=== PATIENT | male | born 1945 | race Caucasian/White ===

== ENCOUNTER 2024-11-19 10:55 | Outpatient (AMB) | payer BC, SELFPAY ==
--- OUTSIDE RECORDS SUMMARY | 2024-11-19 12:27 | XMS_ITS | Clinical Summary ---
Author Organization [facility] Address [address] [place] [address] Phone Care Team Providers Care Warp Spinner Name Role Phone Farhan Lala MD Primary Care Provider [phone] Allergies Active Allergy Reactions Criticality Noted Date Comments Corticosteroids (Glucocorticoids) Other Medications atorvastatin (LIPITOR) 40 mg tablet Take by mouth. Active LANSOPRAZOLE ORAL Take by mouth. Active propranoloL (INDERAL) 40 mg tablet Take 1.5 tablets (60 mg total) by mouth. Active lisinopril-hydro CHLOROthiazide (PRINZIDE,ZESTOR ETIC) 10-12.5 mg per tablet Take 1 tablet by mouth. 04/16/2019 Active metFORMIN (GLUCOPHAGE) 500 mg tablet 1 tablet (500 mg total). 12/09/2020 Active fluticasone propionate (ArmonAir Digihaler) 55 mcg/actuation aero powdr breath act w/sensor Inhale by mouth. 06/08/2018 Active fexofenadine (RACHID) 180 mg tablet Take 1 tablet (180 mg total) by mouth. 12/28/2015 Active polyethylene glycol 3350 (MIRALAX ORAL) Take 17 g by mouth. 04/16/2019 Active lansoprazole (PREVACID) [address] Lou ns:Gastroesophag eal reflux disease without esophagitis TAKE 1 CAPSULE ONCE DAILY 90 capsule 1 06/03/2024 Active Surgical History Surgery Date Site/Laterality Comments HIATAL HERNIA REPAIR COLOSTOMY COLOSTOMY CLOSURE CHOLECYSTECTOMY REPLACEMENT TOTAL KNEE ONCOLOGIC Bilatera l MULTIPLE TOOTH EXTRACTIONS CIRCUMCISION, PRIMARY ROTATOR CUFF REPAIR Bilateral AAA REPAIR HAND SURGERY Right APPENDECTOMY Medical History Medical History Date Comments Hyperlipidemia Hypertension Diabetes mellitus (CMS/[facility] V24, [facility] V28) Social History Tobacco Use Types Packs/Day Years Used Date Smoking Tobacco: Never Smokeless Tobacco: Never Tobacco Cessation:Counseling Given: Not Answered Alcohol Use Standard Drinks/Week Comments Never 0 (1 standard drink = 0.6 oz pur e alcohol) Interpersonal Safety Answer Date Record ed Physical Abuse 02/20/2024 Verbal Abuse 02/20/2024 Sex and Gender Information Value Date Recorded Sex Assigned at Not on file Legal Sex Male 10:58 PM EST Gender Identity Not on file Sexual Orientation Not on file Obstetrics History Last Filed Vital Signs Vital Sign Reading Time Taken Comments Blood Pressure 110/63 02/20/2024 11:17 AM EST Pulse 74 02/20/2024 11:17 AM EST Temperature 36.5 C (97.7 F) 02/20/2024 10:57 AM EST Respiratory Rate 16 02/20/2024 11:17 AM EST Oxygen Saturation 96% 02/20/2024 11:17 AM EST Inhaled Oxygen Concentration - - Weight 118 kg (260 lb) 02/20/2024 10:16 AM EST Height 182.9 cm (6') 02/20/2024 10:16 AM EST Body Mass Index 35.26 02/20/2024 10:16 AM EST Plan of Treatment Health Maintenance Due Date Last Done Comments Diabetes: Annual GFR (Glomerular Filtration Rate) 1945 Diabetes: Annual Foot Exam 1954 Diabetes: Annual Retina Eye Exam 1954 DTaP,Tdap,and Td Vaccines (1 - Tdap) 09/17/1963 Pneumococcal Vaccine: 50+ Years (1 of 1 - PCV) 1994 RSV Immunization Adult Patients (1 - 1-dose 75+ series) 09/17/2019 Cholesterol Screening (Lipid Panel) 03/06/2022 Medicare Annual Wellness Visit 03/06/2022 Social Influencers of Health Screening 03/06/2022 COVID-19 Vaccine ( season) 2023 11/06/2021, 11/12/2020, 10/22/2020 Diabetes: Annual Urine Albumin-Creatinine Ratio (uACR) 02/20/2024 Diabetes: Blood Sugar Control Test (HGBA1C) 02/20/2024 Hypertension/CHF/CAD Annual BMP Blood Test 02/20/2024 Depression Screening 04/03/2024 Influenza Vaccine (#1) 2024 3, 02/01/2022, 01/09/2020, Additional history exists Falls Risk Assessment 02/19/2025 02/20/2024 Zoster Vaccines Completed 04/16/2020, 01/09/2020 HIB Vaccines Aged Out No longer eligi ble based on patient's age to complete this topic HPV Vaccines Aged Out No longer eligi ble based on patient's age to complete this topic Hepatitis A Vaccines Aged Out No long er eligible based on patient's age to complete this topic Hepatitis B Vaccines Aged Out No long er eligible based on patient's age to complete this topic IPV Vaccines Aged Out No longer eligi ble based on patient's age to complete this topic MMR Vaccines Aged Out No longer eligi ble based on patient's age to complete this topic Meningococcal ACWY Vaccine Aged Out N o longer eligible based on patient's age to complete this topic Meningococcal B Vaccine Aged Out No l onger eligible based on patient's age to complete this topic RSV Immunization Patients Under 20 months Aged Out No longer eligible based on patient's age to complete this topic Varicella Vaccines Aged Out No longer eligible based on patient's age to complete this topic Insurance [employer]UE [employer] - [place] MEDICARE ADVANTAGE Advance Directives Documents on File Type Date Recorded Patient Mail Distributor Expl anation Health Care Decision (hx) 07/09/2015 AD FERRER DIRECTIVE Health Care Decision (hx) 07/09/2015 AD FERRER DIRECTIVE Health Care Decision (hx) 07/09/2015 AD FERRER DIRECTIVE Health Care Decision (hx) 07/09/2015 AD FERRER DIRECTIVE Health Care Decision (hx) 07/09/2015 AD FERRER DIRECTIVE Health Care Decision (hx) 07/09/2015 AD FERRER DIRECTIVE Health Care Decision (hx) 07/09/2015 AD FERRER DIRECTIVE Health Care Decision (hx) 07/09/2015 AD FERRER DIRECTIVE Health Care Decision (hx) 07/09/2015 AD FERRER DIRECTIVE Health Care Decision (hx) 07/09/2015 AD FERRER DIRECTIVE Health Care Decision (hx) 07/09/2015 AD FERRER DIRECTIVE Health Care Decision (hx) 07/09/2015 AD FERRER DIRECTIVE Health Care Decision (hx) 07/09/2015 AD FERRER DIRECTIVE Health Care Decision (hx) 01/20/2015 AD FERRER DIRECTIVE Health Care Decision (hx) 01/20/2015 AD FERRER DIRECTIVE Health Care Decision (hx) 01/20/2015 AD FERRER DIRECTIVE Health Care Decision (hx) 01/20/2015 AD FERRER DIRECTIVE Health Care Decision (hx) 01/20/2015 AD FERRER DIRECTIVE Health Care Decision (hx) 01/20/2015 AD FERRER DIRECTIVE Health Care Decision (hx) 01/20/2015 AD FERRER DIRECTIVE Health Care Decision (hx) 01/20/2015 AD FERRER DIRECTIVE Health Care Decision (hx) 01/20/2015 AD FERRER DIRECTIVE Health Care Decision (hx) 01/20/2015 AD FERRER DIRECTIVE Health Care Decision (hx) 01/20/2015 AD FERRER DIRECTIVE Health Care Decision (hx) 01/20/2015 AD FERRER DIRECTIVE Health Care Decision (hx) 01/20/2015 AD FERRER DIRECTIVE Care Teams Warp Spinner Relationship Specialty Start Date End Date Farhan Lala MD PCP - General 01/30/23
--- OUTSIDE RECORDS SUMMARY | 2024-11-19 12:27 | XMS_ITS | Patient Health Record ---
Author Organization [facility] Address [address] [place] [address] Care Team Providers Care Tape Recorder Mechanic Name Role Phone Dai UP, Farhan Primary Care Provider Unavailab ian Hoffmann Ashley Unavailable [phone] Allergies Allergen (clinical drug ingredient) Drug/Non Drug Allergy documented on EMR Reaction Allergy Type Onset Date Status injectable steriods eye pressure, get checked. Drug Allergy Active Results Component Value Reference Range Notes HEMOGLOBIN A1C (GLYCOHEMOGLO BIN) Reviewed date:06/06/2024 10:57:42 AM Interpretation: Performing Lab: Notes/Report: HEMOGLOBIN A1C % (HH) 6.2 HEMOGLOBIN A1C (GLYCOHEMOGLO BIN) Reviewed date:04/14/2024 06:54:23 PM Interpretation: Performing Lab: Notes/Report: HEMOGLOBIN A1C % (HH) 6.2 Reason For Referral No Information Medications Medication SIG (Take, Route, Frequency, Duration) Notes Start Date End Date Status Extra Depth Orthopedic Shoes (1 Pair) with Customized Heat Molded Multidensity Innersoles (3 Pair) as directed Dx: NIDDM (E11.9), Hammertoe Foot Deformity (M20.41,M20.42), Preulcerative Skin Lesion(s) (L85.1) 06/21/2021 Active hydroCHLOROthiazide 25 MG 1 tablet in the morning Orally Once a day; Duration: 30 day(s) Active Ketoconazole 2 % 1 application Externally Once a day; Duration: 30 days 12/23/2021 Active Ammonium Lactate 12 % 1 application Externally to affected areas of dry skin to feet except for between the toes Twice a day; Duration: 30 days Active Fexofenadine HCl 180 MG as directed Orally Active Docusate Sodium Not- Taking Lansoprazole 30 MG 1 capsule Orally Once a day Active Ciclopirox Olamine 0.77 % 1 application to affected area Externally Twice a day; Duration: 30 days Not-Taking Lisinopril 20 MG 1 tablet Orally Once a day; Duration: 30 day(s) Active Propranolol HCl 60 MG Orally Once a day Active metFORMIN HCl 500 MG 1 tablet with a meal Orally Once a day; Duration: 30 day(s) Active Fluticasone Propionate 50 MCG/ACT 1 spray in each nostril Nasally Once a day; Duration: 30 day(s) Not-Taking Thick-It necter thickness Active Clotrimazole-Betamethaso ne 1-0.05 % 1 application Externally Twice a day for 2 weeks then off for 2 weeks -repeat; Duration: 30 days Active Atorvastatin Calcium 40 MG 1 tablet Orally Once a day Active Ciclopirox Olamine 0.77 % 1 application Externally Twice a day; Duration: 30 days Not-Taking MiraLax Active Azelastine HCl Not-T aking Immunizations Vaccine Route Administration Date Status Comme nts Influenza Unknown 01/20/2023 Administered COVID-19 Pfizer BioNTech Vaccine Unknown 11/12/2020 Administered 1st 10/22/2020 2nd 11/12/2020 Social History Tobacco Use: Social History Observation Description Date Details (start date - stop date) Never Smoker NA - NA Tobacco use other than smoking: Question Answer Notes Are you an other tobacco user? No Tobacco Control (Standard) Question Answer Notes Tobacco use: Nonsmoker Additional Findings: Tobacco non-user Current no nsmoker AUDIT-C (Standard) Question Answer Notes Did you have a drink containing alcohol in the p ast year? No Points 0 Interpretation Negative Problems Problem Type SNOMED Code ICD Code Onset Dates Problem Status W/U Status Risk Notes Problem Information temporarily unavailable Other hammer toe(s) (acquired), right foot (M20.41) Active confirmed Problem Information temporarily unavailable Other hammer toe(s) (acquired), left foot (M20.42) Active confirmed Problem Information temporarily unavailable Other hammer toe(s) (acquired), right foot (M20.41) Active confirmed Problem Information temporarily unavailable Type 2 diabetes mellitus with diabetic polyneuropathy (E11.42) Active confirmed Problem Information temporarily unavailable Hammer toe of right foot (M20.41) Active confirmed Problem Information temporarily unavailable Skin ulcer of toe of right foot, limited to breakdown of skin (L97.511) Active confirmed Response to treatment Problem Information temporarily unavailable Skin ulcer of toe of left foot, limited to breakdown of skin (L97.521) Active confirmed Response to treatment,, Nonapplicab le Vital Signs Heart Rate 66 /min 06/06/2024 Blood pressure diastolic 90 mm Hg 06/06/2024 Height 6 ft in 06/06/2024 Blood pressure systolic 144 mm Hg 06/06/2024 Weight 260 lbs 06/06/2024 BMI 35.26 kg/m2 06/06/2024 Procedures Procedure Date Ordered Date Performed Result Body Sit e 66299-URZTULU NAIL, 6 OR MORE 12/07/2023 N/A 22923- Debride <25 sq cm 12/07/2023 N/A 50146-WEYA SKIN LESIONS, OVER 4 12/07/2023 N/A 51802-BWSVRDM NAIL, 6 OR MORE 06/06/2024 N/A 67872-HNCL SKIN LESIONS, OVER 4 06/06/2024 N/A Encounters Encounter Location Date Provider Diagnosis [address] [address] 12/07/2023 Ashley Hoffmann Type 2 diabetes mellitus with diabetic polyneuropathy E11.42 ; Tinea unguium B35.1 and Skin ulcer of toe of left foot, limited to breakdown of skin L97.[address] [address] 06/06/2024 Ashley Hoffmann Type 2 diabetes mellitus with diabetic polyneuropathy E11.42 ; Xerosis of skin L85.3 ; Tinea unguium B35.1 ; Other hammer toe(s) (acquired), right foot M20.41 and Other hammer toe(s) (acquired), left foot M20.[address] [address] 12/06/2023 Ashley Hoffmann Assessments Encounter Date Diagnosis (ICD Code) Assessment Notes Treatment Notes Treatment Clinical Notes Section Notes 12/07/2023 Tinea unguium (ICD-10 - B35.1) 12/07/2023 Type 2 diabetes mellitus with diabetic polyneuropathy (ICD-10 - E11.42) 06/06/2024 Type 2 diabetes mellitus with diabetic polyneuropathy (ICD-10 - E11.42) 06/06/2024 Xerosis of skin (ICD-10 - L85.3) 06/06/2024 Tinea unguium (ICD-10 - B35.1) 12/07/2023 Skin ulcer of toe of left foot, limited to breakdown of skin (ICD-10 - L97.521) Response to treatment,,Bette pplicable Patient Educated with: WOUND CARE INSTRUCTIONS. pdf (WOUND CARE INSTRUCTIONS. pdf) 06/06/2024 Other hammer toe(s) (acquired), right foot (ICD-10 - M20.41) Patient Educated with: DIABETIC FOOT CARE INSTRUCTIONS. pdf (DIABETIC FOOT CARE INSTRUCTIONS. pdf) 06/06/2024 Other hammer toe(s) (acquired), left foot (ICD-10 - M20.42) 12/07/2023 Other 06/06/2024 Other Plan Of Treatment Pending Test Test Name Order Date X ray : Foot, right 2V 06/21/2021 65133-UEQOWEY NAIL, 6 OR MORE 10/18/2021 43772-YVDLKCT NAIL, 6 OR MORE 10/11/2018 78663-IBVRMGD NAIL, 6 OR MORE 06/21/2021 67431-YGDPCAK NAIL, 6 OR MORE 08/07/2017 91747-QZCKTCC NAIL, 6 OR MORE 12/21/2017 84281-YNINQWC NAIL, 6 OR MORE 04/26/2018 43830-DMNHECD NAIL, 6 OR MORE 03/21/2019 30116-PXNYIIV NAIL, 6 OR MORE 09/19/2019 96240-XOATTGB NAIL, 6 OR MORE 03/19/2020 89590-OEDJHFF NAIL, 6 OR MORE 09/21/2020 29610-CORZAWI NAIL, 6 OR MORE 12/23/2021 73939-GGHZXOT NAIL, 6 OR MORE 06/23/2022 61111-LHDYZBO NAIL, 6 OR MORE 12/29/2022 97692-IAKJIZW NAIL, 6 OR MORE 06/29/2023 93184-IILOKSX NAIL, 6 OR MORE 12/07/2023 83654-NZXWREO NAIL, 6 OR MORE 06/06/2024 80862-Mkqewuzv Plate 10/18/2021 57334-Cvcwnsdz Plate 06/29/2023 47754-Alspwnfe Plate 12/29/2022 83399-Zxfptllu Plate 06/21/2021 96879-Xpvdioih Plate 03/21/2019 49270-Iyguhktc Plate Each Additional 58840- Debride <25 sq cm 12/07/2023 27469- Debride <25 sq cm 03/21/2019 09258- Debride <25 sq cm 04/26/2018 10421-WFXF SKIN LESIONS, OVER 4 12/24/19 87316-EVEY SKIN LESIONS, OVER 4 10/19/19 58904-VDRO SKIN LESIONS, OVER 4 12/07/19 65864-YJTZ SKIN LESIONS, OVER 4 06/07/19 60941-VVJV SKIN LESIONS, OVER 4 06/29/19 16552-BDJW SKIN LESIONS, OVER 4 12/30/19 77101-IEGN SKIN LESIONS, OVER 4 06/24/19 Next Appt Details Provider Name:Ashley Hoffmann , 12/12/2024 11:00:00 AM, [address] [place], [address], Insurance Providers Payer Name Payer Address Payer Phone Subscriber Number Group Number Insured Name Patient Relationship to Insured Coverage Start Date Coverage End Date [facility] 65 Medicare Preferred [address] [place] [address] [id number] Yossi Cabrera Self - patient is the insured Medical (General) History Medical History History ICD Code Reflux ( GERD) Cataracts Diverticulosis Gall bladder problems Headaches Migraines Hiatal hernia High blood pressure Numbness Neuropathy chronic sinusitis TIA Thyroid disorder Measles Transfusions Dysphagia covid-19 Diabetic Surgical History Surgery Date(Month/Year) cyst removal 04/24/17 colostomy x2 2015 - x3 2016 total left knee replacement 01/06/15 total right knee replacement 09/30/2014 knee surgery, left torn cartilage 05/09/02 & 10/22/08 circumcision 10/22/07 rotator cuff tear repair L shoulder 07/01 aneurysm repair 12/31/03 deviated septum repair & sinus cavity carpal tunnel surgery R wrist 03/12/01 umbilical hernia repair & remove 3 parat hyroid glands 09/09/92 appendectomy 1958 wrist surgery broken 1957 rotator cuff tear repair R shoulder Dental implant 04/14/08 Upper Denture 08/26/09 Hospitalization History Reason Date(Month/Year) [facility]- Fall 06/02/22 Viral Infection 07/22
--- OUTSIDE RECORDS SUMMARY | 2024-11-19 12:27 | XMS_ITS | Encounter Summary ---
Author Organization [facility] Address [address] [place] [address] Phone Care Team Providers Care Dobby Loom Chain Pegger Name Role Phone Farhan Lala MD Primary Care Provider [phone] Encounter Details Date Type Department Care Team (Late st Contact Info) Description 09/11/2020 Orders Only [facility] [address] [place] [address] Any Fernando MD Hyperkalemia; Renal artery stenosis (HCC); Hypertensive disorder Social History Tobacco Use Types Packs/Day Years Used Date Smoking Tobacco: Never Alcohol Use Standard Drinks/Week Comments No 0 (1 standard drink = 0.6 oz pur e alcohol) Sex and Gender Information Value Date Recorded Sex Assigned at Not on file Legal Sex Male 4:55 PM EST Gender Identity Not on file Sexual Orientation Not on file documented as of this encounter Plan of Treatment Not on file documented as of this encounter Procedures Procedure Name Priority Date/Time Associated Diagnosis Comments RENAL FUNCTION PANEL Routine 12/22/2020 12:20 PM EDT Hyperkalemia Renal artery stenosis (HCC) Hypertensive disorder documented in this encounter Results * (ABNORMAL) Renal function panel (12/22/2020 12:20 PM EDT) Glucose 115(H) (70-99) MG/DL [facility] BUN 11 (8-23) MG/DL [facility] Creatinine 1.0 (0.7-1.2) MG/DL [facility] Sodium 141 (133-145) MMOL/L [facility] Potassium 4.9 (3.6-5.2) MMOL/L [facility] Chloride 101 (98-107) MMOL/L [facility] Bicarbonate (CO2) 28 (22-29) MMOL/L [facility] Anion Gap 12 (4-17) [facility] Albumin 4.2 (3.4-4.8) GM/DL [facility] Calcium 9.4 (8.6-10.5) MG/DL [facility] Phosphorus, Serum 3.8 (2.5-4.5) MG/DL [facility] Est GFR Non 69 ML/MIN/1.7 3 M2 [facility] Comment: Creatinine based estimated glomerular filtration rate (eGFR) is calculated using the Chronic Kidney Disease Epidemiology Collaboration (CKD-EPI). The CKD-EPI creatinine equation has not been validated in children (<18 years), women or in some racial or ethnic subgroups other than Caucasians and Americans. EST GFR 80 ML/MIN/1.7 3 M2 [facility] Comment: Creatinine based estimated glomerular filtration rate (eGFR) is calculated using the Chronic Kidney Disease Epidemiology Collaboration (CKD-EPI). The CKD-EPI creatinine equation has not been validated in children (<18 years), women or in some racial or ethnic subgroups other than Caucasians and Americans. Testing performed or reported by [facility], a Service of [facility], [address] [place] [address] Sundeep Hugo MD, Roll Press Operator [facility]# [id number] Blood specimen (specimen) Venous blood / Unknown 12/22/2020 12:20 PM EDT 12/22/2020 1:15 PM EDT us Any Fernando MD LAB BLOOD ORDERABLES Final Resu lt [facility] documented in this encounter Visit Diagnoses Diagnosis Hyperkalemia Renal artery stenosis (HCC) Hypertensive disorder documented in this encounter Care Teams Dobby Loom Chain Pegger Relationship Specialty Start Date End Date Farhan Lala MD [address] [place] [address] PCP - General Internal Medicine 12/25/20 documented as of this encounter
--- OUTSIDE RECORDS SUMMARY | 2024-11-19 12:27 | XMS_ITS | Continuity of Care Document ---
Author Organization [facility] [address] [facility] [address] [place] [address] Phone [phone] Care Team Providers Care Plant Specialist Name Role Phone Farhan Murillo M.D. Care Team Information Receive r [phone] Problems Active Problems Provider Date Gastroesophageal reflux disease Yazan Rao M.D. Onset: 09/21/2022 Muhammad's esophagus Yazan Rao M.D. Onset: 09/21/2022 Allergic rhinitis Yazan Rao M.D. Onset: 0 09/21/2022 Hypercholesterolemia Yazan Rao M.D. Onset : 09/21/2022 Essential hypertension Yazan Rao M.D. Ons et: 09/21/2022 Periodontal disease Yazan Rao M.D. Onset: 09/21/2022 Hypothyroidism Yazan Roa M.D. Onset: Hypoparathyroidism Yazan Rao M.D. Onset: 09/21/2022 Hypercalcemia Yazan Rao M.D. Onset: Seasonal allergy Yazan Rao M.D. Onset: Gallstone Yazan Rao M.D. Onset: Diastasis recti Yazan Rao M.D. Onset: Prostate mass Yazan Rao M.D. Onset: History of primary hyperparathyroidism Yazan bazan M.D. Onset: 09/21/2022 Type 2 diabetes mellitus Yazan Rao M.D. O nset: 09/21/2022 Multinodular goiter Yazan Rao M.D. Onset: 09/21/2022 Osteoarthritis Yazan Rao M.D. Onset: Social History Type Date Description Comments Sex Male Sex Unknown Lives With Spouse Lives With Daughter Lives With Grandson ETOH Use Denies alcohol use Tobacco Use Start: Unknown Patient has never smoked Allergies and adverse reactions Description No Known Drug Allergies Medications Active Medications SIG Qnty Indications Ordering Provider Date Propranolol HCL ER60mg Caps ER 24HR Take 1 capsule daily Estela Romo MD Atorvastatin Etszjwe77mq Tablets Take 1 tablet daily Farhan Murilol M.D. Metformin SUM437cp Tablets Take 1 Tablet By Mouth Every Day Am Farhan Murillo M.D. Lisinopril-Hydrochlorot uoffiqf75-99wq Tablets Take 1 tablet daily Unknown Dhzeedpoyvya70xr Capsules DR Take One Capsule By Mouth Every Day Jeimy [place] CNP Triamcinolone Acetonide0.1% Cream Apply Onto The Skin as Directed Three Times A Day Unknown Vital Signs Date Vital Result Comment 06/18/2024 10:18am BP Systolic 160 mmHg BP Diastolic 80 mmHg Heart Rate 75 /min Height 72 inches 6'0 Weight 263.12 lb BMI (Body Mass Index) 35.7 kg/m2 Results Test Acquired Date Facility Test Result H/L Range N ote TSH reflex to T4 06/18/2024 [facility] TSH reflex to T4 1.850 uIU/mL 0.450-4.500 Medical Devices Description No Information Available Encounters Type Date Location Provider Dx Diagnosis Office Visit 06/18/2024 10:15a Main Office [facility] E04.2 Nontoxic mult inodular goiter Assessments Date Code Description Provider 06/18/2024 E04.2 Nontoxic multinodular goiter [facility] Plan of Treatment Future Appointment(s):* 06/17/2025 9:00 am - Jack Nunez NP at Main Office 06/18/2024 - [facility]* E04.2 Nontoxic multinodular goiter* New Xrays: * Ultrasound Thyroid, Scheduled: 07/17/24 Functional Status Description No Information Available Mental Status Description No Information Available Referrals Description No Information Available
== END 2024-11-19 10:58 | disposition home or self-care (01) ==
LOC: HO.HMGAL 10:55
PROVIDERS: PCP Internal Medicine; Visit Provider Registered Nurse Emergency
DX: J30.89 Other allergic rhinitis (principal)
CPT/HCPCS: 95117; 95165

== ENCOUNTER 2024-12-11 10:45 | Outpatient (AMB) | payer BC, SELFPAY ==
--- OUTSIDE RECORDS SUMMARY | 2023-12-28 07:00 | XMS_ITS ---
[facility] Address [address] [place] [address] Care Team Providers Care Word Processing Specialist Name Role Phone Dai UP, Farhan Primary Care Provider Unavailab ian HoffmannAshley Unavailable [phone] Encounters Encounter Location Date Provider Diagnosis [address] [address] 12/28/2023 Aslhey Hoffmann Plan Of Treatment Next Appt Details Provider Name:Ashley Hoffmann , 12/12/2024 11:00:00 AM, [address] [place], [address], Progress Notes * Yossi CABRERA MauriDOB: [birth year] (79 yo M)Acc No.[id number]:12/28/2023 Progress Note Patient: Yossi YU Provider: Quoc Hoffmann DPM :1945 A ge:78 Y S ex:Male Date:12/28/2023 Address:[address] [place] Pcp:Farhan Lala MD Subjective: * Chief Complaints: * * Medical History: Objective: * Vitals: Assessment: Plan: * Treatment: * Images: * The named appointment provid er may or may not be the originator of this progress note, and it is not deemed complete until electronically signed by the appointment provider. Sign off status: Pending * Provider: Quoc Hoffmann DPM Date: 0 12/28/2023 Generated for Fernando palma/Ronak/Nadeen on: 0 12/11/2024 01:22 PM EDT
--- OUTSIDE RECORDS SUMMARY | 2024-03-07 07:15 | XMS_ITS ---
Author Organization [facility] Address [address] [place] [address] Care Team Providers Care Information Operator Name Role Phone Dai UP, Farhan Primary Care Provider Unavailab Ashley Gil [phone] REASON FOR VISIT per Dr Hoffmann Encounters Encounter Location Date Provider Diagnosis [facility] [address] [place] [address] 03/07/2024 Ashley Hoffmann Plan Of Treatment Next Appt Details Provider Name:Ashley A Shun , 12/12/2024 11:00:00 AM, [address] [place], [address], Progress Notes * Yossi CABRERADOB: [birth year] (79 yo M)Acc No.[id number]:03/07/2024 Progress Note Patient: Yossi YU Provider: Quoc Hoffmann DPM :1945 A ge:78 Y S ex:Male Date:03/07/2024 Address:[address] [place] Pcp:Farhan Lala MD Subjective: * Chief Complaints: * [address] Hoffmann. * Medical History: Objective: * Vitals: Assessment: Plan: * Treatment: * Images: * The named appointment provid er may or may not be the originator of this progress note, and it is not deemed complete until electronically signed by the appointment provider. Sign off status: Pending * Provider: Quoc Hoffmann DPM Date: 1 05/08/2023 Generated for Fernando palma/Ronak/Nadeen on: 0 12/11/2024 01:22 PM EDT
--- OUTSIDE RECORDS SUMMARY | 2024-12-11 13:22 | XMS_ITS | Patient Health Record ---
Author Organization [facility] Address [address] [place] [address] Care Team Providers Care Environmental Restoration Planner Name Role Phone Dai UP, Farhan Primary Care Provider Unavailab ian Hoffmann Ashley Unavailable [phone] Allergies Allergen (clinical drug ingredient) Drug/Non Drug [...] Ordered Date Performed Result Body Sit e 82028-MTDPIAR NAIL, 6 OR MORE 06/06/2024 N/A 93367-RAUZ SKIN LESIONS, OVER 4 06/06/2024 N/A Encounters Encounter Location Date Provider Diagnosis [facility] [address] [place] [address] 06/06/2024 Ashley Black Type 2 diabetes mellitus with diabetic polyneuropathy E11.42 ; Xerosis of skin L85.3 ; Tinea unguium B35.1 ; Other hammer toe(s) (acquired), right foot M20.41 and Other hammer toe(s) (acquired), left foot M20.42 Assessments Encounter Date Diagnosis (ICD Code) Assessment Notes Treatment Notes Treatment Clinical Notes Section Notes 06/06/2024 Type 2 diabetes mellitus with diabetic polyneuropathy (ICD-10 - E11.42) 06/06/2024 Xerosis of skin (ICD-10 - L85.3) 06/06/2024 Tinea unguium (ICD-10 - B35.1) 06/06/2024 Other hammer toe(s) (acquired), right foot (ICD-10 - M20.41) Patient Educated with: DIABETIC FOOT CARE INSTRUCTIONS. pdf (DIABETIC FOOT CARE INSTRUCTIONS. pdf) 06/06/2024 Other hammer toe(s) (acquired), left foot (ICD-10 - M20.42) 06/06/2024 Other Plan Of Treatment Pending Test Test Name Order Date X ray : Foot, right 2V 06/21/2021 34890-HXKCBSN NAIL, 6 OR MORE 10/18/2021 11362-IEIWFLT NAIL, 6 OR MORE 10/11/2018 70394-PUETZGZ NAIL, 6 OR MORE 06/21/2021 16222-OMOVSEP NAIL, 6 OR MORE 08/07/2017 85814-JHUGJCZ NAIL, 6 OR MORE 12/21/2017 02360-XFFKRIH NAIL, 6 OR MORE 04/26/2018 85658-WARMQCR NAIL, 6 OR MORE 03/21/2019 65276-UFKVAND NAIL, 6 OR MORE 09/19/2019 66753-OMBZHAP NAIL, 6 OR MORE 03/19/2020 48724-YSZDNVA NAIL, 6 OR MORE 09/21/2020 48548-GGXKFHM NAIL, 6 OR MORE 12/23/2021 10650-MCMOADF NAIL, 6 OR MORE 06/23/2022 18616-VTSUHMY NAIL, 6 OR MORE 12/29/2022 14785-YCWMGIK NAIL, 6 OR MORE 06/29/2023 28129-FJYIUEE NAIL, 6 OR MORE 12/07/2023 85722-JVJYKHK NAIL, 6 OR MORE 06/06/2024 19173-Bhqqnlgg Plate 10/18/2021 48595-Ibyzquvq Plate 06/29/2023 50449-Egklemiw Plate 12/29/2022 06167-Sjkhrbcz Plate 06/21/2021 12311-Cjggfviq Plate 03/21/2019 17406-Jwsjrlpf Plate Each Additional 09820- Debride <25 sq cm 12/07/2023 50228- Debride <25 sq cm 03/21/2019 87384- Debride <25 sq cm 04/26/2018 99412-LCBT SKIN LESIONS, OVER 4 12/24/19 76616-RXXG SKIN LESIONS, OVER 4 10/19/19 22 50642-JFHY SKIN LESIONS, OVER 4 12/07/19 24 54910-YQKW SKIN LESIONS, OVER 4 06/07/19 25 86014-LVMQ SKIN LESIONS, OVER 4 06/29/19 24 00499-LYKX SKIN LESIONS, OVER 4 12/30/19 23 64926-YOHO SKIN LESIONS, OVER 4 06/24/19 Next Appt Details Provider Name:Ashley Hoffmann , 12/12/2024 11:00:00 AM, [address] [place] [address], [phone], Insurance Providers Payer Name Payer Address Payer Phone Subscriber Number Group Number Insured Name Patient Relationship to Insured Coverage Start Date Coverage End Date [facility] 65 Medicare Preferred [address] [place] [address] [phone] [id number] Yossi Cabrera Self - patient is the [...]
--- OUTSIDE RECORDS SUMMARY | 2024-12-11 13:23 | XMS_ITS | Continuity of Care Document ---
Author Organization [facility] [address] [place] [address] Phone [phone] Care Team Providers Care Land Manager Name Role Phone Farhan Murillo M.D. Care Team Information Receive r [phone] Problems Active Problems Provider Date Gastroesophageal reflux disease Yazan Rao M.D. Onset: 09/21/2022 Muhammad's esophagus Yazan Rao M.D. Onset: 09/21/2022 Allergic rhinitis Yazan Rao M.D. Onset: 0 09/21/2022 Hypercholesterolemia Yazan Rao M.D. Onset : 09/21/2022 Essential hypertension Yazan Rao M.D. Ons et: 09/21/2022 Periodontal disease Yazan Rao M.D. Onset: 09/21/2022 Hypothyroidism Yazan Rao M.D. Onset: Hypoparathyroidism Yazan Rao M.D. Onset: [...] 1 capsule daily Estela Romo MD Atorvastatin Glsmsrk35ln Tablets Take 1 tablet daily Farhan Murillo M.D. Metformin AVD139me Tablets Take 1 Tablet By Mouth Every Day Am Farhan Murillo M.D. Lisinopril-Hydrochlorot tzdhelq25-87ec Tablets Take 1 tablet daily Unknown Bfjkwumxkngx98zd Capsules DR Take One Capsule By Mouth [...]
--- OUTSIDE RECORDS SUMMARY | 2024-12-11 13:23 | XMS_ITS | Encounter Summary ---
Author Organization [facility] Address [address] [place] [address] Phone Care Team Providers Care Business Services Intern Name Role Phone Farhan Lala MD Primary Care Provider [phone] Encounter Details Date Type Department Care Team (Late st Contact Info) Description 09/11/2020 Orders Only [facility] [address] [place] [address] Any Fernando MD Hyperkalemia; Renal [...] (3.6-5.2) MMOL/L [facility] Chloride 101 (98-107) MMOL/L [facility] Bicarbonate (CO2) 28 (22-29) MMOL/L [facility] Anion Gap 12 (4-17) [facility] Albumin 4.2 (3.4-4.8) GM/DL [facility] Calcium 9.4 (8.6-10.5) MG/DL [facility] Phosphorus, Serum 3.8 (2.5-4.5) MG/DL [facility] Est GFR Non 69 ML/MIN/1.7 3 M2 [facility] Comment: Creatinine based estimated glomerular filtration rate (eGFR) is calculated using the Chronic Kidney Disease Epidemiology Collaboration (CKD-EPI). The CKD-EPI creatinine equation has not been validated in children (<18 years), women or in some racial or ethnic subgroups other than Caucasians and Americans. EST GFR 80 ML/MIN/1.7 3 M2 [facility] Comment: Creatinine based estimated glomerular filtration rate (eGFR) is calculated using the Chronic Kidney Disease Epidemiology Collaboration (CKD-EPI). The CKD-EPI creatinine equation has not been validated in children (<18 years), women or in some racial or ethnic subgroups other than Caucasians and Americans. Testing performed or reported by [facility], a Service of [facility], [address] [place] [address] Sundeep Hugo MD, Medication Specialist [facility]# [id number] Blood specimen (specimen) Venous blood / Unknown 12/22/2020 12:20 PM EDT 12/22/2020 1:15 PM EDT us Any Fernando MD LAB BLOOD ORDERABLES Final Resu lt [facility] documented in this encounter Visit Diagnoses Diagnosis Hyperkalemia Renal artery stenosis (HCC) Hypertensive disorder documented in this encounter Care Teams Business Services Intern Relationship Specialty Start Date End Date Farhan Lala MD [address] [place] [address] PCP - General Internal Medicine 12/25/20 documented as of this encounter
--- OUTSIDE RECORDS SUMMARY | 2024-12-11 13:23 | XMS_ITS | Clinical Summary ---
Author Organization [facility] Address [address] [facility] [address] [place] [address] Phone Care Team Providers Care Senior Scientist Name Role Phone Farhan Lala MD Primary Care Provider [phone] Allergies Active Allergy Reactions Criticality Noted Date Comments Corticosteroids Other (see comments) 06/23/2020 Medications atorvastatin (LIPITOR) 40 MG tablet Take 1 tablet by mouth 1 (one) time each day Active fexofenadine (RACHID) 180 MG tablet Take 1 tablet by mouth Active lansoprazole (PREVACID SOLUTAB) 30 MG dispersible tablet Take 1 tablet by mouth 1 (one) time each day Active polyethylene glycol (GLYCOLAX) 17 GM/SCOOP powder 1 Scoop by Other route Active propranolol (INDERAL) 60 MG tablet Take 1 tablet by mouth 1 (one) time each day Active metFORMIN (GLUCOPHAGE) 500 MG tablet Take 500 mg by mouth 1 (one) time each day 12/09/2020 Active lisinopril-hydro CHLOROthiazide (PRINZIDE,ZESTOR ETIC) 20-25 MG per tabletIndication s:Hypertensive disorder Take 1 tablet by mouth 1 (one) time each day 90 tablet 3 07/18/2022 Active Active Problems Problem Noted Date Diagnosed Date Type 2 diabetes mellitus without complication Obesity 07/28/2021 Hypertensive disorder 06/23/2020 Renal artery stenosis 06/23/2020 Resolved Problems Problem Noted Date Diagnosed Date Resolved Date Hyperkalemia 06/23/2020 07/22/2021 Peripheral vascular disease 06/23/2020 07/22/2021 Venous insufficiency 06/23/2020 022 Immunizations Immunization Administration Dates Next Due Pfizer SARS-COV-2 11/12/2020 Family History Medical History Relation Comments Hypertension Father Relation Status Comments Father Mother Social History Tobacco Use Types Packs/Day Years Used Date Smoking Tobacco: Never Smokeless Tobacco: Never Alcohol Use Standard Drinks/Week Comments No 0 (1 standard drink = 0.6 oz pur e alcohol) Sex and Gender Information Value Date Recorded Sex Assigned at Not on file Legal Sex Male 4:55 PM EST Gender Identity Not on file Sexual Orientation Not on file Last Filed Vital Signs Vital Sign Reading Time Taken Comments Blood Pressure 140/72 11/21/2022 9:50 AM EDT Pulse 72 11/21/2022 9:50 AM EDT Temperature - - Respiratory Rate - - Oxygen Saturation 95% 11/21/2022 9:50 AM EDT Inhaled Oxygen Concentration - - Weight 122 kg (270 lb) 11/21/2022 9:50 AM EDT Height 182.9 cm (6') 11/21/2022 9:50 AM EDT Body Mass Index 36.62 11/21/2022 9:50 AM EDT Plan of Treatment Health Maintenance Due Date Last Done Comments Pneumococcal Vaccine: 50+ Ye ars (1 of 2 - PCV) 09/17/1964 Diabetes: Hemoglobin A1C 07/26/2021 Diabetes: Ophthalmology Exam 07/26/2021 Diabetes: Pedal Pulse Checked 07/26/2021 Diabetes: Sensory Foot Exam 07/26/2021 Diabetes: Visual Foot Exam 07/26/2021 Influenza Vaccine (#1) 2024 Hepatitis B Vaccine Aged Out No longe r eligible based on patient's age to complete this topic Insurance [facility] Care Teams Senior Scientist Relationship Specialty Start Date End Date Farhan Lala MD [address] [place] [address] PCP - General Internal Medicine 12/25/20
== END 2024-12-11 10:55 | disposition home or self-care (01) ==
LOC: HO.HMGAL 10:45
PROVIDERS: PCP Internal Medicine; Visit Provider Registered Nurse Emergency
DX: J30.89 Other allergic rhinitis (principal)
CPT/HCPCS: 95117; 95165

== ENCOUNTER 2024-12-25 10:25 | Outpatient (AMB) | payer BC, SELFPAY ==
--- OUTSIDE RECORDS SUMMARY | 2023-12-28 07:00 | XMS_ITS ---
Author Organization [facility] Address [address] [place] [address] Care Team Providers Care Workforce Planning Analyst Name Role Phone Dai UP, Farhan Primary Care Provider Unavailab ian HoffmannAshley Unavailable [phone] Encounters Encounter Location Date Provider Diagnosis [address] [address] 12/28/2023 Ashley Hoffmann Plan Of Treatment Next Appt Details Provider Name:Ashley Hoffmann , 06/12/2025 11:00:00 AM, [address] [place], [address], Progress Notes * Yossi CABRERA MauriDOB: [birth year] (79 yo M)Acc No.[id number]:12/28/2023 Progress Note Patient: Yossi YU Provider: Quoc Hoffmann DPM :1945 A ge:78 Y S ex:Male Date:12/28/2023 Address:[address] [place] Pcp:Farhan Lala MD Subjective: * Chief Complaints: [...] 12/28/2023 Generated for Fernando palma/Ronak/Nadeen on: 0 12/25/2024 12:57 PM EDT
--- OUTSIDE RECORDS SUMMARY | 2024-03-07 07:15 | XMS_ITS ---
Author Organization [facility] Address [address] [place] [address] Care Team Providers Care Boat Oar Maker Name Role Phone Dai UP, Farhan Primary Care Provider Unavailab Ashley Gil [phone] REASON FOR VISIT per Dr Hoffmann Encounters Encounter Location Date Provider Diagnosis [facility] [address] [place] [address] 03/07/2024 Ashley Hoffmann Plan Of Treatment Next Appt Details Provider Name:Ashleyjessika Hoffmann , 06/12/2025 11:00:00 AM, [address] [place], [address], Progress Notes * Yossi CABRERADOB: [birth year] (79 yo M)Acc No.[id number]:03/07/2024 Progress Note Patient: Yossi YU Provider: Quoc Hoffmann DPM :1945 A ge:78 Y S ex:Male Date:03/07/2024 Address:[address] [place] Pcp:Farhan Lala MD Subjective: * Chief Complaints: [...] 05/08/2023 Generated for Fernando palma/Ronak/Nadeen on: 0 12/25/2024 12:57 PM EDT
--- OUTSIDE RECORDS SUMMARY | 2024-12-25 12:57 | XMS_ITS | Patient Health Record ---
Author Organization [facility] Address [address] [facility] [place] [address] Care Team Providers Care Commuter Train Operator Name Role Phone Dai UP, Farhan Primary Care Provider Unavailab ian HoffmannTiarae Unavailable [phone] Allergies Allergen (clinical drug ingredient) Drug/Non Drug Allergy documented on EMR Reaction Allergy Type Onset Date Status injectable steriods eye pressure, get checked. Drug Allergy Active Results Component Value Reference Range Notes HEMOGLOBIN A1C (GLYCOHEMOGLO BIN) Reviewed date:06/06/2024 10:57:42 AM Interpretation: Performing Lab: Notes/Report: HEMOGLOBIN A1C % (HH) 6.2 HEMOGLOBIN A1C (GLYCOHEMOGLO BIN) Reviewed date:12/12/2024 11:01:15 AM Interpretation: Performing Lab: Notes/Report: HEMOGLOBIN A1C [...] Once a day; Duration: 30 day(s) Active Clotrimazole-Betamethaso ne 1-0.05 % 1 application Externally Twice a day for 2 weeks then off for 2 weeks -repeat; Duration: 30 days Active Ketoconazole 2 % 1 application Externally Once a day; Duration: 30 days 12/23/2021 Active Fexofenadine HCl 180 MG as directed Orally Active Ciclopirox Olamine 0.77 % 1 application to affected area Externally Twice a day; Duration: 30 days Not-Taking Lansoprazole 30 MG 1 capsule Orally Once a day Active Lisinopril 20 MG 1 tablet Orally Once a day; Duration: 30 day(s) Active Propranolol HCl 60 MG Orally Once a day Active Docusate Sodium Not- Taking Fluticasone Propionate 50 MCG/ACT 1 spray in each nostril Nasally Once a day; Duration: 30 day(s) Not-Taking Ammonium Lactate 12 % 1 application Externally to affected areas of dry skin to feet except for between the toes Twice a day; Duration: 30 days Active Ciclopirox Olamine 0.77 % 1 application Externally Twice a day; Duration: 30 days Not-Taking Azelastine HCl Not-T aking metFORMIN HCl 500 MG 1 tablet with a meal Orally Once a day; Duration: 30 day(s) Active Thick-It necter thickness Active Atorvastatin Calcium 40 MG 1 tablet Orally Once a day Active MiraLax Active Immunizations Vaccine Route Administration Date Status Comme nts Influenza Unknown 01/20/2023 Administered Influenza Unknown 01/02/2024 Administered COVID-19 Pfizer BioNTech Vaccine Unknown 11/12/2020 [...] Problem Status W/U Status Risk Notes Problem Polyneuropathy due to type 2 diabetes mellitus ([id number]) Type 2 diabetes mellitus with diabetic polyneuropathy (E11.42) Active confirmed Vital Signs Heart Rate 66 /min 06/06/2024 Blood pressure diastolic 65 mm Hg 12/12/2024 Height 6 ft in 12/12/2024 Blood pressure systolic 130 mm Hg 12/12/2024 Weight 250 lbs 12/12/2024 BMI 33.9 kg/m2 12/12/2024 Procedures Procedure Date Ordered Date Performed Result Body Sit e 39755-UWTHUKL NAIL, 6 OR MORE 06/06/2024 N/A 04408-TKKN SKIN LESIONS, OVER 4 06/06/2024 N/A 97522-NJQEVUZ NAIL, 6 OR MORE 12/12/2024 N/A 03267-XYQN SKIN LESIONS, OVER 4 12/12/2024 N/A Encounters Encounter Location Date Provider Diagnosis [facility] [address] 06/06/2024 Ashley Black Type 2 diabetes mellitus with diabetic polyneuropathy E11.42 ; Xerosis of skin L85.3 ; Tinea unguium B35.1 ; Other hammer toe(s) (acquired), right foot M20.41 and Other hammer toe(s) (acquired), left foot M20.[address] [facility] [address] 12/12/2024 Ashley Black Type 2 diabetes mellitus with diabetic polyneuropathy E11.42 ; Xerosis of skin L85.3 and Tinea unguium B35.1 Assessments Encounter Date Diagnosis (ICD Code) Assessment Notes Treatment Notes Treatment Clinical Notes Section Notes 06/06/2024 Type 2 diabetes mellitus with diabetic polyneuropathy (ICD-10 - E11.42) 06/06/2024 Xerosis of skin (ICD-10 - L85.3) 12/12/2024 Type 2 diabetes mellitus with diabetic polyneuropathy (ICD-10 - E11.42) 12/12/2024 Xerosis of skin (ICD-10 - L85.3) 12/12/2024 Tinea unguium (ICD-10 - B35.1) 06/06/2024 Tinea unguium (ICD-10 - B35.1) 06/06/2024 Other hammer toe(s) (acquired), right foot (ICD-10 - M20.41) Patient Educated with: DIABETIC FOOT CARE INSTRUCTIONS. pdf (DIABETIC FOOT CARE INSTRUCTIONS. pdf) 06/06/2024 Other hammer toe(s) (acquired), left foot (ICD-10 - M20.42) 06/06/2024 Other 12/12/2024 Other Plan Of Treatment Pending Test Test Name Order Date X ray : Foot, right 2V 06/21/2021 90614-QHNUSKD NAIL, 6 OR MORE 10/18/2021 53054-FWEPLWT NAIL, 6 OR MORE 10/11/2018 96669-XHEOMDT NAIL, 6 OR MORE 06/21/2021 08186-YNLASOA NAIL, 6 OR MORE 08/07/2017 11072-BEYDZZZ NAIL, 6 OR MORE 12/21/2017 35355-VYITRUH NAIL, 6 OR MORE 04/26/2018 78552-WJASHRA NAIL, 6 OR MORE 03/21/2019 51120-OBYTXVD NAIL, 6 OR MORE 09/19/2019 44435-PDNZDXO NAIL, 6 OR MORE 03/19/2020 03424-CSUIJJZ NAIL, 6 OR MORE 09/21/2020 39694-MIDQGVM NAIL, 6 OR MORE 12/23/2021 74759-CYJDNLG NAIL, 6 OR MORE 06/23/2022 12544-ANJYULQ NAIL, 6 OR MORE 12/29/2022 05692-ZHFMIVQ NAIL, 6 OR MORE 06/29/2023 58065-IHNIRLQ NAIL, 6 OR MORE 12/07/2023 14314-MYHFTOB NAIL, 6 OR MORE 06/06/2024 01856-MDOZUYO NAIL, 6 OR MORE 12/12/2024 45933-Hkmwoefh Plate 10/18/2021 38246-Ueffkpwc Plate 06/29/2023 42251-Dlxaieoc Plate 12/29/2022 43004-Evczpbwh Plate 06/21/2021 12059-Xwubintv Plate 03/21/2019 46383-Hvxmwzqu Plate Each Additional 35790- Debride <25 sq cm 12/07/2023 21414- Debride <25 sq cm 03/21/2019 56260- Debride <25 sq cm 04/26/2018 79314-WEUS SKIN LESIONS, OVER 4 12/24/19 40738-OTGK SKIN LESIONS, OVER 4 10/19/19 50004-QBOS SKIN LESIONS, OVER 4 12/07/19 66113-CXPP SKIN LESIONS, OVER 4 03/06/20 25 53677-KVUU SKIN LESIONS, OVER 4 12/13/19 25 57011-RGKI SKIN LESIONS, OVER 4 06/29/19 24 90213-DBBK SKIN LESIONS, OVER 4 12/30/19 23 57338-FRAI SKIN LESIONS, OVER 4 06/24/19 23 Next Appt Details Provider Name:Ashley Hoffmann , 06/12/2025 11:00:00 AM, [address] [facility], [place], [address], Insurance Providers Payer Name Payer Address Payer Phone Subscriber Number Group Number Insured Name Patient Relationship to Insured Coverage Start Date Coverage End Date [facility] 65 Medicare Preferred [address] [place] [address] [id number] Yossi Cabrera Self - patient is the insured Medical (General) History Medical History History ICD Code Reflux ( GERD) Cataracts Diverticulosis Gall bladder problems Headaches Migraines Hiatal hernia High blood pressure Numbness Neuropathy chronic sinusitis TIA Thyroid disorder Measles Transfusions Dysphagia covid-19 Diabetic Other hammer toe(s) (acquired), right fo ot M20.41 Other hammer toe(s) (acquired), left hosea t M20.42 Surgical History Surgery Date(Month/Year) cyst removal 04/24/17 [...]
--- OUTSIDE RECORDS SUMMARY | 2024-12-25 12:57 | XMS_ITS | Continuity of Care Document ---
Author Organization [facility] [address] [place] [address] Phone [phone] Care Team Providers Care E Commerce Director Name Role Phone Farhan Murillo M.D. Care Team Information Receive r [phone] Problems Active Problems Provider Date Gastroesophageal reflux [...] 1 capsule daily Estela Romo MD Atorvastatin Utislnq30it Tablets Take 1 tablet daily Farhan Murillo M.D. Metformin JHE337uw Tablets Take 1 Tablet By Mouth Every Day Am Farhan Murillo M.D. Lisinopril-Hydrochlorot lcwdubk53-38ku Tablets Take 1 tablet daily Unknown Laznlttbhwnn24ox Capsules DR Take One Capsule By Mouth [...]
--- OUTSIDE RECORDS SUMMARY | 2024-12-25 12:57 | XMS_ITS | Encounter Summary ---
Author Organization [facility] Address [address] [place] [address] Phone Care Team Providers Care Ict Project Manager Name Role Phone Farhan Lala MD Primary Care Provider [phone] Encounter Details Date Type Department Care Team (Late st Contact Info) Description 09/11/2020 Orders Only [facility] [address] [place] [address] Any Fernando MD Hyperkalemia; Renal [...] (3.6-5.2) MMOL/L [facility] Chloride 101 (98-107) [facility]OL/L [facility] Bicarbonate (CO2) 28 (22-29) MMOL/L [facility] Anion Gap 12 (4-17) [facility] Albumin 4.2 (3.4-4.8) GM/DL [facility] Calcium 9.4 (8.6-10.5) MG/DL [facility] Phosphorus, Serum 3.8 (2.5-4.5) MG/DL [facility] Est GFR Non 69 ML/MIN/1.7 3 M2 [facility] Comment: Creatinine based estimated glomerular filtration rate (eGFR) is calculated using the Chronic Kidney Disease Epidemiology Collaboration (CKD-EPI). The CKD-EPI creatinine equation has not been validated in children (<18 years), women or in some racial or ethnic subgroups other than Caucasians and Americans. EST GFR 80 ML/MIN/1.7 3 M2 [facility] Comment: Creatinine based estimated glomerular filtration rate (eGFR) is calculated using the Chronic Kidney Disease Epidemiology Collaboration (CKD-EPI). The CKD-EPI creatinine equation has not been validated in children (<18 years), women or in some racial or ethnic subgroups other than Caucasians and Americans. Testing performed or reported by [facility], a Service of [facility], [address] [place] [address] Sundeep Hugo MD, Wood Barker [facility]# [id number] Blood specimen (specimen) Venous blood / Unknown 12/22/2020 12:20 PM EDT 12/22/2020 1:15 PM EDT us Any Fernando MD LAB BLOOD ORDERABLES Final Resu lt [facility] documented in this encounter Visit Diagnoses Diagnosis Hyperkalemia Renal artery stenosis (HCC) Hypertensive disorder documented in this encounter Care Teams Ict Project Manager Relationship Specialty Start Date End Date Farhan Lala MD [address] [place] [address] PCP - General Internal Medicine 12/25/20 documented as of this encounter
--- OUTSIDE RECORDS SUMMARY | 2024-12-25 12:58 | XMS_ITS | Clinical Summary ---
Author Organization [facility] Address [address] [place] [address] Phone Care Team Providers Care Bill Recapitulation Clerk Name Role Phone Farhan Lala MD Primary Care Provider [phone] Allergies Active Allergy Reactions Criticality Noted Date Comments Corticosteroids (Glucocorticoids) Other Medications atorvastatin (LIPITOR) 40 mg tablet Take by mouth. Active LANSOPRAZOLE ORAL Take by mouth. Active propranoloL (INDERAL) 40 mg tablet Take 1.5 tablets (60 mg total) by mouth. Active lisinopril-hydr oCHLOROthiazide (PRINZIDE,ZESTO RETIC) 10-12.5 mg per tablet Take 1 tablet by mouth. 0 Active metFORMIN (GLUCOPHAGE) 500 mg tablet 1 tablet (500 mg total). 1 Active fluticasone propionate (ArmonAir Digihaler) 55 mcg/actuation aero powdr breath act w/sensor Inhale by mouth. 9 Active fexofenadine (RACHID) 180 mg tablet Take 1 tablet (180 mg total) by mouth. 6 Active polyethylene glycol 3350 (MIRALAX ORAL) Take 17 g by mouth. 0 Active lansoprazole (PREVACID) [address] capsuleIndicati ons:Gastroesoph ageal reflux disease without esophagitis TAKE 1 CAPSULE ONCE DAILY 90 capsule 1 5 Active lansoprazole (PREVACID) [address] capsuleIndicati ons:Gastroesoph ageal reflux disease without esophagitis TAKE 1 CAPSULE ONCE DAILY 90 capsule 1 5 09/18/2 025 Discontinued Encounters Date Type Department Care Team Description 12/16/2024 Telephone Orthopedic Surgery - [place] [address] [facility] [address] [place] [address] Bc Espinosa MD from Last 3 Months Surgical History Surgery Date Site/Laterality Comments HIATAL HERNIA REPAIR COLOSTOMY COLOSTOMY CLOSURE CHOLECYSTECTOMY REPLACEMENT TOTAL KNEE ONCOLOGIC Bilatera l MULTIPLE TOOTH EXTRACTIONS CIRCUMCISION, PRIMARY ROTATOR CUFF REPAIR Bilateral AAA REPAIR HAND SURGERY Right APPENDECTOMY Medical History Medical History Date Comments Hyperlipidemia Hypertension Diabetes mellitus ([facility] V24, [facility] V28) Social History Tobacco Use Types Packs/Day [...] 03/06/2022 Social Influencers of Health Screening 03/06/2022 Diabetes: Annual Urine Albumin-Creatinine Ratio (uACR) 02/20/2024 Diabetes: Blood Sugar Control Test (HGBA1C) 02/20/2024 Hypertension/CHF/CAD Annual BMP Blood Test 02/20/2024 Depression Screening 04/03/2024 COVID-19 Vaccine ( season) 2024 11/06/2021, 11/12/2020, 10/22/2020 Influenza Vaccine (#1) 2024 3, 02/01/2022, 01/09/2020, [...] Documents on File Type Date Recorded Patient Apartment Leasing Manager Expl anation Health Care Decision (hx) 07/09/2015 [...] (hx) 01/20/2015 AD FERRER DIRECTIVE Care Teams Bill Recapitulation Clerk Relationship Specialty Start Date End Date Farhan Lala MD PCP - General 01/30/23
--- OUTSIDE RECORDS SUMMARY | 2024-12-25 12:58 | XMS_ITS | Clinical Summary ---
Author Organization [facility] Address [address] [facility] [address] [place] [address] Phone Care Team Providers Care Business Unit Manager Name Role Phone Farhan Lala MD Primary Care Provider [phone] Allergies Active Allergy Reactions Criticality Noted Date [...] patient's age to complete this topic Insurance [facility] Care Teams Business Unit Manager Relationship Specialty Start Date End Date Farhan Lala MD [address] [place] [address] PCP - General Internal Medicine 12/25/20
== END 2024-12-25 10:26 | disposition home or self-care (01) ==
LOC: HO.HMGAL 10:25
PROVIDERS: PCP Internal Medicine; Visit Provider Registered Nurse Emergency
DX: J30.89 Other allergic rhinitis (principal)
CPT/HCPCS: 95117; 95165

== ENCOUNTER 2025-01-08 11:01 | Outpatient (AMB) | payer BC, SELFPAY | END 2025-01-08 11:02 | disposition home or self-care (01) | LOC: HO.HMGAL 11:01 | PROVIDERS: PCP Internal Medicine; Visit Provider Registered Nurse Emergency | DX: J30.89 Other allergic rhinitis (principal) | CPT/HCPCS: 95117; 95165 ==

== ENCOUNTER 2025-01-15 10:35 | Outpatient (AMB) | payer BC, SELFPAY ==
--- OUTSIDE RECORDS SUMMARY | 2023-12-28 07:00 | XMS_ITS ---
Author Organization [facility] Address [address] [place] [address] Care Team Providers Care Photonic Laboratory Technician Name Role Phone Dai UP, Farhan Primary Care Provider Unavailab ian HoffmannAshley Unavailable [phone] Encounters Encounter Location Date Provider Diagnosis [address] [address] 12/28/2023 Ashley Hoffmann Plan Of Treatment Next Appt Details Provider Name:Ashley Hoffmann , 06/12/2025 11:00:00 AM, [address] [place], [address], Progress Notes * Yossi CABRERA MauriDOB: [birth year] (79 yo M)Acc No.[id number]:12/28/2023 Progress Note Patient: Yossi YU Provider: Quoc Hoffmann DPM :1945 A ge:78 Y S ex:Male Date:12/28/2023 Address:[address] [place] Pcp:Farhan Lala MD Subjective: * Chief Complaints: [...] 0 12/28/2023 Generated for Fernando palma/Ronak/Nadeen on: 1 12:36 PM EDT
--- OUTSIDE RECORDS SUMMARY | 2024-03-07 07:15 | XMS_ITS ---
Author Organization [facility] Address [address] [place] [address] Care Team Providers Care Lens Cleaner Name Role Phone Dai UP, Farhan Primary Care Provider Unavailab Ashley Gil [phone] REASON FOR VISIT per Dr Hoffmann Encounters Encounter Location Date Provider Diagnosis [facility] [address] [place] [address] 03/07/2024 Ashley Hoffmann Plan Of Treatment Next Appt Details Provider Name:Ashleyjessika Hoffmann , 06/12/2025 11:00:00 AM, [address] [place], [address], Progress Notes * Yossi CABRERADOB: [birth year] (79 yo M)Acc No.[id number]:03/07/2024 Progress Note Patient: Yossi YU Provider: Quoc Hoffmann DPM :1945 A ge:78 Y S ex:Male Date:03/07/2024 Address:[address] [place] Pcp:Farhan Lala MD Subjective: * Chief Complaints: [...] 1 05/08/2023 Generated for Fernando palma/Ronak/Nadeen on: 1 12:37 PM EDT
--- NOTE | 2025-01-15 10:40 | A.OFFVIS_ITS ---
Intake Visit Reasons: 1 yr HPI Comments Details: The patient is an 79-year-old male presenting with tremors and existing medical conditions requiring evaluation. He describes his tremor, mentioning that it is not severely debilitating and is noticeable upon physical contact, a condition that has remained consistent. The patient has a past medical history of a Transient Ischemic Attack (TIA), for which he has been prescribed Propranolol to manage associated migraines and potential subsequent episodes, though specifics on a trigger event remain unconfirmed. In June 2022, the patient sustained a fall resulting in a head injury with subsequent examination revealing a hand fracture and an ankle infection from impact injuries. Treatment has yielded adequate recovery without indications for extended hospitalization. The patient reports a hammer toe deformity correctly managed with orthopedic advice. Overall, he maintains an active role in his medical care and adherence to therapies suggested by healthcare providers, aware of his need for safety measures such as utilizing a cane for balance and stability. [facility] Medical History (Updated 01/15/25 @ 10:42 by Estela Romo MD) Carpal tunnel syndrome Vertigo Hypertension Cerebral microvascular disease Tremor Migraine Review of Systems Const Details: - Neurological: Reports tremors. Denies progression. - Musculoskeletal: Reports a fracture of the hand and hammered toe deformity. - Integumentary: Reports an infection in the ankle. - General: Denies any new concerns. Reports use of cane for safety. Physical Exam Neuro Other: Mental Status: Alert and oriented to person, place, and time. Normal attention. Normal spontaneous speech, fluency, and comprehension. No obvious issues with mood and memory. Affect is appropriate. Cranial Nerves: CN II: Visual lopez full to confrontation, visual acuity intact. CN III, IV, : Pupils equal, round, reactive to light and accommodation. Extraocular movements are normal. CN V: Facial sensation is normal. CN VII: Facial movements symmetrical. CN VIII: Hearing intact to bedside conversation is normal. CN IX, X: Palate elevates symmetrically. CN XI: Shoulder shrug and head turn symmetrical. CN XII: Tongue midline without atrophy or fasciculations. Extrapyramidal: He is hezg-op-jhwarzji postural hand tremor and mildly ataxic gait holding a cane. Speech: Normal; no dysarthria or tremor. Assessment & Plan Assessment & Plan (1) Migraine: Comment: MRI brain WO at [facility] in 2013: mild chronic microvascular ischemic lesions that were more pronounced and right frontal area than others. Code(s): G43.909 - Migraine, unspecified, not intractable, without status migrainosus Category: Medical Qualifiers: Migraine type: migraine (< 15 days per month) without aura Status migrainosus presence: without status migrainosus Intractability: not intractable Qualified Code(s): G43.009 - Migraine without aura, not intractable, without status migrainosus (2) Tremor: Code(s): R25.1 - Tremor, unspecified Category: Medical Plan Impression: a: Moderate benign essential tremor b: Migraine Rec: Propranalol ER 60mg a day Coding Level of Care Code Est Pt Level 4 (04273) Diagnoses Migraine without aura and without status migrainosus, not intractable G43.009 Migraine type: migraine (< 15 days per month) without aura Status migrainosus presence: without status migrainosus Intractability: not intractable Tremor R25.1
--- OUTSIDE RECORDS SUMMARY | 2025-01-15 12:36 | XMS_ITS | Patient Health Record ---
Author Organization [facility] Address [address] [facility] [place] [address] Care Team Providers Care Test Deck Supervisor Name Role Phone Dai UP, Farhan Primary Care Provider Unavailab ian HoffmannTiarae Unavailable [phone] Allergies Allergen (clinical drug ingredient) Drug/Non Drug [...] Polyneuropathy due to type 2 diabetes mellitus (194944940) Type 2 diabetes mellitus with diabetic polyneuropathy (E11.42) Active confirmed Vital Signs Heart Rate 66 /min 06/06/2024 Blood pressure diastolic 65 mm Hg 12/12/2024 Height 6 ft in 12/12/2024 Blood pressure systolic 130 mm Hg 12/12/2024 Weight 250 lbs 12/12/2024 BMI 33.9 kg/m2 12/12/2024 Procedures Procedure Date Ordered Date Performed Result Body Sit e 17879-XWMKYHN NAIL, 6 OR MORE 06/06/2024 N/A 24695-MQWB SKIN LESIONS, OVER 4 06/06/2024 N/A 47618-FAKSUCR NAIL, 6 OR MORE 12/12/2024 N/A 12921-TLHM SKIN LESIONS, OVER 4 12/12/2024 N/A Encounters Encounter Location Date Provider Diagnosis [facility] [address] 06/06/2024 Ashley Black Type 2 diabetes mellitus with diabetic polyneuropathy E11.42 ; Xerosis of skin L85.3 ; Tinea unguium B35.1 ; Other hammer toe(s) (acquired), right foot M20.41 and Other hammer toe(s) (acquired), left foot M20.[address] [facility] [address] 12/12/2024 Ashley Black Type 2 diabetes mellitus [...] X ray : Foot, right 2V 06/21/2021 90451-QFKVRXQ NAIL, 6 OR MORE 10/18/2021 14411-NMSYLMQ NAIL, 6 OR MORE 10/11/2018 03097-OSOOUIR NAIL, 6 OR MORE 06/21/2021 19203-GJRNNYA NAIL, 6 OR MORE 08/07/2017 30493-HRUZQVQ NAIL, 6 OR MORE 12/21/2017 67903-VCCQMHL NAIL, 6 OR MORE 04/26/2018 74936-FBUPQCH NAIL, 6 OR MORE 03/21/2019 39841-KHIMETQ NAIL, 6 OR MORE 09/19/2019 29628-PFAHNFA NAIL, 6 OR MORE 03/19/2020 64734-NBHFILR NAIL, 6 OR MORE 09/21/2020 15801-GNTTXAQ NAIL, 6 OR MORE 12/23/2021 00980-SFDQSOW NAIL, 6 OR MORE 06/23/2022 90404-TQCCLKV NAIL, 6 OR MORE 12/29/2022 73476-FCOLOXC NAIL, 6 OR MORE 06/29/2023 23781-FDTZTRU NAIL, 6 OR MORE 12/07/2023 65534-PZCLJVE NAIL, 6 OR MORE 06/06/2024 30784-OPDQUNS NAIL, 6 OR MORE 12/12/2024 15195-Qzujvhhd Plate 10/18/2021 19608-Gxdzjaoe Plate 06/29/2023 93126-Owxxwpkb Plate 12/29/2022 02501-Zyjkqfdd Plate 06/21/2021 79352-Osoxbtja Plate 03/21/2019 08208-Prhoiknh Plate Each Additional 85986- Debride <25 sq cm 12/07/2023 23543- Debride <25 sq cm 03/21/2019 65111- Debride <25 sq cm 04/26/2018 84731-XOUD SKIN LESIONS, OVER 4 12/24/19 12141-KDHG SKIN LESIONS, OVER 4 10/19/19 63629-GOQO SKIN LESIONS, OVER 4 12/07/19 35922-FYVC SKIN LESIONS, OVER 4 03/06/20 25 64143-GXBY SKIN LESIONS, OVER 4 12/13/19 25 02075-AZMJ SKIN LESIONS, OVER 4 06/29/19 24 00070-VOOQ SKIN LESIONS, OVER 4 12/30/19 23 49983-FOFQ SKIN LESIONS, OVER 4 06/24/19 23 Next Appt Details Provider Name:Ashley Hoffmann , 06/12/2025 11:00:00 AM, [address] [facility], [place], [address], Insurance Providers Payer Name Payer Address Payer Phone Subscriber Number Group Number Insured Name Patient Relationship to Insured Coverage Start Date Coverage End Date [facility] 65 Medicare Preferred [address] [place] [address] [id number] Yossi Cabrera Self - patient is the [...]
--- OUTSIDE RECORDS SUMMARY | 2025-01-15 12:37 | XMS_ITS | Clinical Summary ---
Author Organization [facility] Address [address] [facility] [address] [place] [address] Phone Care Team Providers Care Calender Machine Operator Name Role Phone Farhan Lala MD Primary Care Provider Allergies Active Allergy Reactions Criticality Noted Date [...] patient's age to complete this topic Insurance [facility] Care Teams Calender Machine Operator Relationship Specialty Start Date End Date Farhan Lala MD [address] [place] [address] PCP - General Internal Medicine 12/25/20
--- OUTSIDE RECORDS SUMMARY | 2025-01-15 12:37 | XMS_ITS | Encounter Summary ---
Author Organization [facility] Address [address] [place] [address] Phone Care Team Providers Care Industrial X Ray Operator Name Role Phone Farhan Lala MD Primary Care Provider [phone] Encounter Details Date Type Department Care Team (Late st Contact Info) Description 09/11/2020 Orders Only [facility] [address] [place] [address] Any Fernando MD Hyperkalemia; Renal [...] (3.6-5.2) MMOL/L [facility] Chloride 101 (98-107) [facility]/L [facility] Bicarbonate (CO2) 28 (22-29) MMOL/L [facility] Anion Gap 12 (4-17) [facility] Albumin 4.2 (3.4-4.8) GM/DL [facility] Calcium 9.4 (8.6-10.5) MG/DL [facility] Phosphorus, Serum 3.8 (2.5-4.5) MG/DL [facility] Est GFR Non 69 ML/MIN/1.7 3 M2 [facility] Comment: Creatinine based estimated glomerular filtration rate (eGFR) is calculated using the Chronic Kidney Disease Epidemiology Collaboration (CKD-EPI). The CKD-EPI creatinine equation has not been validated in children (<18 years), women or in some racial or ethnic subgroups other than Caucasians and Americans. EST GFR 80 ML/MIN/1.7 3 M2 [facility] Comment: Creatinine based estimated glomerular filtration rate (eGFR) is calculated using the Chronic Kidney Disease Epidemiology Collaboration (CKD-EPI). The CKD-EPI creatinine equation has not been validated in children (<18 years), women or in some racial or ethnic subgroups other than Caucasians and Americans. Testing performed or reported by [facility], a Service of [facility], [address] [place] [address] Sundeep Hugo MD, Staff Readiness Officer [facility]# [id number] Blood specimen (specimen) Venous blood / Unknown 12/22/2020 12:20 PM EDT 12/22/2020 1:15 PM EDT us Any Fernando MD LAB BLOOD ORDERABLES Final Resu lt [facility] documented in this encounter Visit Diagnoses Diagnosis Hyperkalemia Renal artery stenosis (HCC) Hypertensive disorder documented in this encounter Care Teams Industrial X Ray Operator Relationship Specialty Start Date End Date Farhan Lala MD [address] [place] [address] PCP - General Internal Medicine 12/25/20 documented as of this encounter
--- OUTSIDE RECORDS SUMMARY | 2025-01-15 12:37 | XMS_ITS | Continuity of Care Document ---
Author Organization [facility] [address] [place] [address] Phone [phone] Care Team Providers Care Sewer Line Photo Inspector Name Role Phone Farhan Murillo M.D. Care Team Information Receive r [phone] Problems Active Problems Provider Date Gastroesophageal reflux [...] 1 capsule daily Estela Romo MD Atorvastatin [id number] Tablets Take 1 tablet daily Farhan Murillo M.D. Metformin [id number] Tablets Take 1 Tablet By Mouth Every Day Am Farhan Murillo M.D. Lisinopril-Hydrochlorot [id number] Tablets Take 1 tablet daily Unknown Nnqxyukropsw16ms Capsules DR Take One Capsule By Mouth [...]
--- OUTSIDE RECORDS SUMMARY | 2025-01-15 12:38 | XMS_ITS | Clinical Summary ---
Author Organization [facility] Address [address] [place] [address] Phone Care Team Providers Care Nurse Midwife/Clinical Instructor Name Role Phone Farhan Lala MD Primary Care Provider [phone] Allergies Active Allergy Reactions Criticality Noted Date [...] Team Description 12/16/2024 Telephone Orthopedic Surgery - [place] [address] [facility] [address] [place] [address] Bc Espinosa MD from Last 3 Months Surgical History Surgery Date Site/Laterality Comments HIATAL HERNIA REPAIR COLOSTOMY COLOSTOMY CLOSURE CHOLECYSTECTOMY REPLACEMENT TOTAL KNEE ONCOLOGIC Bilatera l MULTIPLE TOOTH EXTRACTIONS CIRCUMCISION, PRIMARY ROTATOR CUFF REPAIR Bilateral AAA REPAIR HAND SURGERY Right APPENDECTOMY Medical History Medical History Date Comments Hyperlipidemia Hypertension Diabetes mellitus ([facility] V24, [facility] V28) Social History Tobacco Use Types Packs/Day Years Used Date Smoking Tobacco: Never Smokeless Tobacco: Never Tobacco Cessation:Counseling Given: Not Answered Alcohol Use Standard Drinks/Week Comments Never 0 (1 standard drink = 0.6 oz pur e alcohol) Interpersonal Safety Answer Date Record ed Physical Abuse Unrecognized value 02/20/2024 Verbal Abuse Unrecognized value 02/20/2024 Sex and Gender Information Value Date [...] Documents on File Type Date Recorded Patient Chip Bin Conveyor Tender Expl anation Health Care Decision (hx) 07/09/2015 [...] (hx) 01/20/2015 AD FERRER DIRECTIVE Care Teams Nurse Midwife/Clinical Instructor Relationship Specialty Start Date End Date Farhan Lala MD PCP - General 01/30/23
== END 2025-01-15 10:51 | disposition home or self-care (01) ==
LOC: HO.HSM 10:36
PROVIDERS: PCP Internal Medicine; Referring Provider Internal Medicine; Visit Provider Psychiatry & Neurology Neurology
DX: G43.009 Migraine without aura, not intractable, without status migrainosus (principal); R25.1 Tremor, unspecified
CPT/HCPCS: 99214

== ENCOUNTER 2025-02-10 13:59 | Outpatient (AMB) | payer BC, SELFPAY ==
--- OUTSIDE RECORDS SUMMARY | 2025-02-10 16:16 | XMS_ITS | Encounter Summary ---
Author Organization [facility] Address [address] [place] [address] Phone Care Team Providers Care Stave Inspector Name Role Phone Farhan Lala MD Primary Care Provider [phone] Encounter Details Date Type Department Care Team (Late st Contact Info) Description 09/11/2020 Orders Only [facility] [address] [place] [address] Any Fernando MD Hyperkalemia; Renal [...] (3.6-5.2) MMOL/L [facility] Chloride 101 (98-107) [facility]/L [facility] Bicarbonate (CO2) 28 (22-29) MMOL/L [facility] Anion Gap 12 (4-17) [facility] Albumin 4.2 (3.4-4.8) GM/DL [facility] Calcium 9.4 (8.6-10.5) MG/DL [facility] Phosphorus, Serum 3.8 (2.5-4.5) MG/DL [facility] Est GFR Non 69 ML/MIN/1.7 3 M2 [facility] Comment: Creatinine based estimated glomerular filtration rate (eGFR) is calculated using the Chronic Kidney Disease Epidemiology Collaboration (CKD-EPI). The CKD-EPI creatinine equation has not been validated in children (<18 years), women or in some racial or ethnic subgroups other than Caucasians and Americans. EST GFR 80 ML/MIN/1.7 3 M2 [facility] Comment: Creatinine based estimated glomerular filtration rate (eGFR) is calculated using the Chronic Kidney Disease Epidemiology Collaboration (CKD-EPI). The CKD-EPI creatinine equation has not been validated in children (<18 years), women or in some racial or ethnic subgroups other than Caucasians and Americans. Testing performed or reported by [facility], a Service of [facility], [address] [place] [address] Sundeep Hugo MD, Taper Operator [facility]# [id number] Blood specimen (specimen) Venous blood / Unknown 12/22/2020 12:20 PM EDT 12/22/2020 1:15 PM EDT us Any Fernando MD LAB BLOOD ORDERABLES Final Resu lt [facility] documented in this encounter Visit Diagnoses Diagnosis Hyperkalemia Renal artery stenosis (HCC) Hypertensive disorder documented in this encounter Care Teams Stave Inspector Relationship Specialty Start Date End Date Farhan Lala MD [address] [place] [address] PCP - General Internal Medicine 12/25/20 documented as of this encounter
--- OUTSIDE RECORDS SUMMARY | 2025-02-10 16:16 | XMS_ITS | Clinical Summary ---
Author Organization [facility] Address [address] [facility] [address] [place] [address] Phone Care Team Providers Care Stitch Cleaner Name Role Phone Farhan Lala MD Primary Care Provider [phone] Allergies Active Allergy Reactions Criticality Noted Date [...] patient's age to complete this topic Insurance [facility] Care Teams Stitch Cleaner Relationship Specialty Start Date End Date Farhan Lala MD [address] [place] [address] PCP - General Internal Medicine 12/25/20
--- OUTSIDE RECORDS SUMMARY | 2025-02-10 16:16 | XMS_ITS | Clinical Summary ---
Author Organization [facility] Address [address] [place] [address] Phone Care Team Providers Care Vitreo Retinal Surgeon Name Role Phone Farhan Lala MD Primary Care Provider [phone] Allergies Active Allergy Reactions Criticality Noted Date [...] 04/16/2019 Active lansoprazole (PREVACID) [address] Luo ns:Gastroesophag eal reflux disease without esophagitis TAKE 1 CAPSULE ONCE DAILY 90 capsule 1 12/19/2024 Active Encounters Date Type Department Care Team Description 12/16/2024 Telephone Orthopedic Surgery [facility] [address] [facility] [address] [place] [address] Bc Espinosa MD from Last 3 Months Surgical History Surgery Date Site/Laterality Comments HIATAL HERNIA REPAIR COLOSTOMY COLOSTOMY CLOSURE CHOLECYSTECTOMY REPLACEMENT TOTAL KNEE ONCOLOGIC Bilatera l MULTIPLE TOOTH EXTRACTIONS CIRCUMCISION, PRIMARY ROTATOR CUFF REPAIR Bilateral AAA REPAIR HAND SURGERY Right APPENDECTOMY Medical History Medical History Date Comments Hyperlipidemia Hypertension Diabetes mellitus ([facility] V24, [facility] V28) Social History Tobacco Use Types Packs/Day [...] Documents on File Type Date Recorded Patient Excel Vba Developer Expl anation Health Care Decision (hx) 07/09/2015 [...] (hx) 01/20/2015 AD FERRER DIRECTIVE Care Teams Vitreo Retinal Surgeon Relationship Specialty Start Date End Date Farhan Lala MD PCP - General 01/30/23
--- OUTSIDE RECORDS SUMMARY | 2025-02-10 16:16 | XMS_ITS | Continuity of Care Document ---
Author Organization [facility] [address] [place] [address] Phone [phone] Care Team Providers Care Fishing Reel Assembler Name Role Phone Farhan Murillo M.D. Care Team Information Receive r [phone] Problems Active Problems Provider Date Gastroesophageal reflux [...] 1 capsule daily Estela Romo MD Atorvastatin [id number] Tablets Take 1 tablet daily Farhan Murillo M.D. Metformin [id number] Tablets Take 1 Tablet By Mouth Every Day Am Farhan Murillo M.D. Lisinopril-Hydrochlorot [id number] Tablets Take 1 tablet daily Unknown [id number] Capsules DR Take One Capsule By Mouth [...]
== END 2025-02-10 14:00 | disposition home or self-care (01) ==
LOC: HO.HMGAL 13:59
PROVIDERS: PCP Internal Medicine; Visit Provider Registered Nurse Emergency
DX: J30.89 Other allergic rhinitis (principal)
CPT/HCPCS: 95117; 95165

== ENCOUNTER 2025-03-12 13:50 | Outpatient (AMB) | payer BC, SELFPAY ==
--- OUTSIDE RECORDS SUMMARY | 2025-03-12 21:27 | XMS_ITS | Encounter Summary ---
Author Organization [facility] Address [address] [place] [address] Phone Care Team Providers Care Marriage And Family Social Worker Name Role Phone Farhan Lala MD Primary Care Provider [phone] Encounter Details Date Type Department Care Team (Late st Contact Info) Description 09/11/2020 Orders Only [facility] [address] [place] [address] Any Fernando MD Hyperkalemia; Renal [...] (3.6-5.2) MMOL/L [facility] Chloride 101 (98-107) [facility]OL/L [facility] Bicarbonate (CO2) 28 (22-29) MMOL/L [facility] Anion Gap 12 (4-17) [facility] Albumin 4.2 (3.4-4.8) GM/DL [facility] Calcium 9.4 (8.6-10.5) MG/DL [facility] Phosphorus, Serum 3.8 (2.5-4.5) MG/DL [facility] Est GFR Non 69 ML/MIN/1.7 3 M2 [facility] Comment: Creatinine based estimated glomerular filtration rate (eGFR) is calculated using the Chronic Kidney Disease Epidemiology Collaboration (CKD-EPI). The CKD-EPI creatinine equation has not been validated in children (<18 years), women or in some racial or ethnic subgroups other than Caucasians and Americans. EST GFR 80 ML/MIN/1.7 3 M2 [facility] Comment: Creatinine based estimated glomerular filtration rate (eGFR) is calculated using the Chronic Kidney Disease Epidemiology Collaboration (CKD-EPI). The CKD-EPI creatinine equation has not been validated in children (<18 years), women or in some racial or ethnic subgroups other than Caucasians and Americans. Testing performed or reported by [facility], a Service of [facility], [address] [place] [address] Sundeep Hugo MD, [employer] [facility]# [id number] Blood specimen (specimen) Venous blood / Unknown 12/22/2020 12:20 PM EDT 12/22/2020 1:15 PM EDT us Any Fenrando MD LAB BLOOD ORDERABLES Final Resu lt [facility] documented in this encounter Visit Diagnoses Diagnosis Hyperkalemia Renal artery stenosis (HCC) Hypertensive disorder documented in this encounter Care Teams Marriage And Family Social Worker Relationship Specialty Start Date End Date Farhan Lala MD [address] [place] [address] PCP - General Internal Medicine 12/25/20 documented as of this encounter
--- OUTSIDE RECORDS SUMMARY | 2025-03-12 21:27 | XMS_ITS | Clinical Summary ---
Author Organization [facility] Address [address] [facility] [address] [place] [address] Phone Care Team Providers Care Commercial Loan Administrator Name Role Phone Farhan Lala MD Primary Care Provider [phone] Allergies Active Allergy Reactions Criticality Noted Date [...] patient's age to complete this topic Insurance [facility] Care Teams Commercial Loan Administrator Relationship Specialty Start Date End Date Farhan Lala MD [address] [place] [address] PCP - General Internal Medicine 12/25/20
--- OUTSIDE RECORDS SUMMARY | 2025-03-12 21:27 | XMS_ITS | Continuity of Care Document ---
Author Organization [facility] [address] [place] [address] Phone [phone] Care Team Providers Care Shuttle Fixer Name Role Phone Farhan Murillo M.D. Care Team Information Receive r [phone] Problems Active Problems Provider Date Gastroesophageal reflux [...] 1 capsule daily Estela Romo MD Atorvastatin [id number] Tablets Take 1 tablet daily Farhan Murillo M.D. Metformin [id number] Tablets Take 1 Tablet By Mouth Every Day Am Farhan Murillo M.D. Lisinopril-Hydrochlorot -33vp Tablets Take 1 tablet daily Unknown [id number] Capsules DR Take One Capsule By Mouth [...]
--- OUTSIDE RECORDS SUMMARY | 2025-03-12 21:28 | XMS_ITS | Clinical Summary ---
Author Organization [facility] Address [address] [place] [address] Phone Care Team Providers Care Account Service Associate Name Role Phone Farhan Lala MD Primary [...] Care Team Description 12/16/2024 Telephone Orthopedic Surgery [facility] [phone] [facility] [address] [place] [address] Bc Espinosa MD from Last 3 Months Surgical History Surgery Date Site/Laterality Comments HIATAL HERNIA REPAIR COLOSTOMY COLOSTOMY CLOSURE CHOLECYSTECTOMY REPLACEMENT TOTAL [facility]NEE [facility] Bilatera l MULTIPLE TOOTH EXTRACTIONS CIRCUMCISION, PRIMARY ROTATOR CUFF REPAIR Bilateral AAA REPAIR HAND SURGERY Right APPENDECTOMY Medical History Medical History Date Comments Hyperlipidemia Hypertension Diabetes mellitus ([facility] V24, [facility] V28) Social History Tobacco Use Types Packs/Day [...] series) 09/17/2019 Cholesterol Screening (Lipid Panel) 03/06/2022 Falls Risk Assessment 03/06/2022 Medicare Annual Wellness Visit 03/06/2022 Social Influencers of Health Screening 03/06/2022 Diabetes: Annual Urine Albumin-Creatinine Ratio (uACR) 02/20/2024 Diabetes: Blood Sugar Control Test (HGBA1C) 02/20/2024 Hypertension/CHF/CAD Annual BMP Blood Test 02/20/2024 Depression Screening 04/03/2024 COVID-19 Vaccine ( season) 2024 11/06/2021, 11/12/2020, 10/22/2020 Influenza Vaccine (#1) 2024 3, 02/01/2022, 01/09/2020, Additional history exists Zoster Vaccines Completed 04/16/2020, 01/09/2020 HIB Vaccines [...] Documents on File Type Date Recorded Patient Fabrication And Assembly Supervisor Expl anation Health Care Decision (hx) 07/09/2015 [...] DIRECTIVE Health Care Decision (hx) 01/20/2015 AD FERRRE DIRECTIVE Health Care Decision (hx) 01/20/2015 AD [...] (hx) 01/20/2015 AD FERRER DIRECTIVE Care Teams Account Service Associate Relationship Specialty Start Date End Date Farhan Lala MD [phone] (Work) PCP - General 01/30/23
== END 2025-03-12 13:53 | disposition home or self-care (01) ==
LOC: HO.HMGAL 13:50
PROVIDERS: PCP Internal Medicine; Visit Provider Registered Nurse Emergency
DX: J30.89 Other allergic rhinitis (principal)
CPT/HCPCS: 95117; 95165